=== PATIENT | female | born 1990 | race Caucasian/White ===

== ENCOUNTER 2022-02-09 21:21 | Emergency (ER) | payer OTHER ==
[~2022-02-09] VITALS: Ht 167.6 cm; Wt 54.0 kg
[2022-02-09 21:48] VITALS: BP 122/76
--- NOTE | 2022-02-09 21:54 | NUR ---
PATIENT TO LOBBY
--- NOTE | 2022-02-09 22:02 | NUR ---
PT W/C ASSIST TO BED 1
--- NOTE | 2022-02-09 23:10 | NUR ---
PATIENT IN BED SIDE RAILS UP X1. PT IS TEARFUL.
--- NOTE | 2022-02-09 23:23 | NUR ---
PATIENT LEFT WITHOUT BEING SEEN BY DR. ASIF MARTÍNEZ. NO FURTHER CARE PROVIDED FOR PATIENT.
--- NOTE | 2022-02-09 23:23 | NUR ---
PATIENT LWBS. ER MD NOTIFED
--- NOTE | 2022-02-09 23:23 | NUR ---
PATIENT ELOPED FROM FACILITY. DISCHARGE INSTRUCTIONS NOT GIVEN TO PATIENT. NOTIFIED.
== END 2022-02-09 23:23 | disposition left against medical advice (07) ==
LOC: MED 21:21
DX: R11.2 Nausea with vomiting, unspecified (principal); R51.9 Headache, unspecified; R42 Dizziness and giddiness; M79.18 Myalgia, other site; Z53.21 Procedure and treatment not carried out due to patient leaving prior to being seen by health care provider; F32.9 Major depressive disorder, single episode, unspecified; F41.9 Anxiety disorder, unspecified; D64.9 Anemia, unspecified; Z88.8 Allergy status to other drugs, medicaments and biological substances; Z88.6 Allergy status to analgesic agent